=== PATIENT | female | born 1940 | race Caucasian/White ===

== ENCOUNTER 2019-04-13 11:09 | Day surgery (SDC) | payer MEDICARE, OTHER ==
[~2019-04-13] VITALS: Ht 172.7 cm; Wt 79.5 kg
[~2019-04-13 11:09] MED LIST: ACETAMINOPHEN 500 MG TABLET PO PRN; ASPI-630 PO; DILT180C2 PO; EZET1TAB65 PO; FLUO40CA9 PO; FURO-68 PO; HYDROmorphone 2 MG/ML VIAL IV PRN; IV RINGERS,LACTATED 1000ML 1,000 ML IV SCH; LIDOCAINE 1% PF 2 ML VIAL. ID PRN; LISI-130 PO; METO25TA4 PO; MORPHINE SULFATE 2 MG/ML VIAL. IV PRN; OMEG-152 PO; ONDANSETRON PF 4 MG/2 ML VIAL. IV PRN; POTA10TA12 PO; PROCHLORPERAZINE 10 MG/2 ML VIAL. IV PRN; ceFAZolin SODIUM IV Push 1 GM VIAL. IVP PRN; fentaNYL PF VIAL 100 MCG/2 ML VIAL IV PRN
[2019-04-13] MEDS ORDERED: fentaNYL PF VIAL 100 MCG/2 ML VIAL ONE (12:30)
[2019-04-13] MEDS ORDERED: ROCURONIUM 50 MG/5 ML VIAL. ONE (12:30)
[2019-04-13] MEDS ORDERED: BUPIVACAINE-EPI 0.25%-1:200000 MPF 30 ML VIAL. ONE (12:58)
[2019-04-13] MEDS ORDERED: DEXAMETHASONE SOD PHOS 20 MG/5 ML VIAL. ONE (13:46)
[2019-04-13] MEDS ORDERED: LIDOCAINE 2% PF 5 ML VIAL. ONE (13:46)
[2019-04-13] MEDS ORDERED: PROPOFOL 20 ML IV ONE (13:46)
[2019-04-13] MEDS ORDERED: KETOROLAC 30 MG/ML VIAL. ONE (13:46)
[2019-04-13] MEDS ORDERED: SEVOFLURANE 61 TO 120 MINUTES. IH ONE (13:46)
[2019-04-13] MEDS ORDERED: ONDANSETRON PF 4 MG/2 ML VIAL. ONE ×2 (13:46)
[2019-04-13] MEDS ORDERED: NEOSTIGMINE METHYLSULFATE 5 MG/5 ML SYRINGE. ONE (13:48)
[2019-04-13] MEDS ORDERED: GLYCOPYRROLATE 1 MG/5 ML VIAL. ONE (13:48)
[2019-04-13] MEDS ORDERED: MINERAL OIL for SURGERY 10 ML VIAL. MC ONE (14:02)
--- NOTE | 2019-04-13 14:32 | PDOC4 ---
Operative Note Operative Note Date: 04/13/2019 Preoperative diagnosis: Right lower abdominal hernia Postoperative diagnosis: Same Procedure: Robotic-assisted laparoscopic ventral hernia repair with mesh Surgeon: Haile Specimen: None Dictation: Patient is a 78-year-old female is had pain in her right lower quadrant ultrasound showed a small hernia with incarcerated omentum. Procedure of robotic-assisted laparoscopic ventral hernia repair with mesh was explained to the patient in detail risk benefits were also discussed including bleeding infection injury to intra-abdominal contents possibly necessitating further or open operations alternatives to this procedure also discussed with the patient who seemed to understand and gave both verbal and written consent had the procedure performed. Patient was taken to the operating room placed in supine position general anesthesia was initiated once patient was sleep and intubated her abdomen was prepped and draped usual sterile fashion using ChloraPrep. An area in the left upper quadrant was injected with quarter percent Marcaine with epinephrine incision was made 11 blade scalpel and a 5 mm Visiport was placed under direct visualization into the abdomen creating an created pneumoperitoneum once this was complete the abdomen was inspected was noted there was small hernia in the right lower quadrant with incarcerated omentum. A da Juliette ports were placed under direct visualization one in the left mid abdomen one in the left lower abdomen and a 5 mm Visiport was changed out for another da Juliette port. The da Juliette robot was brought in and docked all port sites surgeon went to the robotic console using grasper and Endo [place] scissors the hernia contents were reduced and the peritoneum was opened the hernia defect was closed with a running 20V LOC nonabsorbable suture. Ventral light ST mesh was placed over the hernia defect this was sewn into place with the nonabsorbable V lock suture and the peritoneum was closed over the mesh with 20 absorbable V lock suture. Ports were all removed the pneumoperitoneum reduced port sites were all closed for septic and a Monocryl Mastisol Steri-Strips and island dressings were applied. Patient was awakened and extubated in the operating room taken to recovery in stable condition all sponge instrument needle counts listed as correct estimate blood loss 5 mL. LAMONT EVANS MD Apr 13, 2019 14:32
--- NOTE | 2019-04-13 14:34 | DISCH ---
DISCHARGE INSTRUCTIONS Condition on Discharge Condition on Discharge: Stable Activity After Discharge Activity Instructions for Disc: Avoid exertion Other activity instructions: no lifting more than 20 pounds for 2 weeks Diet after Discharge Diet after Discharge: Regular Wound Incision Care Other wound/incision instructi: a shower in 24 hours Contacting the DRKyaw after DC Call your doctor for: If your condition worsens Follow-Up Follow up with: Dr. Evans in 2 weeks LAMONT EVANS MD Apr 13, 2019 14:34
[2019-04-13] MEDS ORDERED: HYDROcodone/APAP 5/325MG 1 TAB TABLET PO ONE (14:45)
[2019-04-13] MEDS ORDERED: HYDR-2761 PO (14:50)
[2019-04-13 15:42] VITALS: BP 163/55
== END 2019-04-13 16:34 | disposition home or self-care (01) ==
LOC: SURG 11:09
PROVIDERS: ATTEND Surgery
DX: K43.6 Other and unspecified ventral hernia with obstruction, without gangrene (principal); Z88.1 Allergy status to other antibiotic agents; Z88.8 Allergy status to other drugs, medicaments and biological substances; Z79.82 Long term (current) use of aspirin; Z79.899 Other long term (current) drug therapy
CPT/HCPCS: 49653; C1781; J0690; J1100; J1885; J2001; J2405; J2704; J2710; J3490; A7015; J3010

== ENCOUNTER → 2020-05-24 | Outpatient (CLI) | payer MEDICARE, OTHER ==
[~2020-05-24] MED LIST changes: -ACETAMINOPHEN 500 MG TABLET PO PRN; +HYDR-2761 PO; -HYDROmorphone 2 MG/ML VIAL IV PRN; -IV RINGERS,LACTATED 1000ML 1,000 ML IV SCH; -LIDOCAINE 1% PF 2 ML VIAL. ID PRN; -MORPHINE SULFATE 2 MG/ML VIAL. IV PRN; -ONDANSETRON PF 4 MG/2 ML VIAL. IV PRN; -PROCHLORPERAZINE 10 MG/2 ML VIAL. IV PRN; -ceFAZolin SODIUM IV Push 1 GM VIAL. IVP PRN; -fentaNYL PF VIAL 100 MCG/2 ML VIAL IV PRN
--- NOTE | 2020-05-24 11:47 | RAD ---
MR#: [id number] Date of Study: 05/24/2020 Ordering Physician: MAYCO GARCIA, Referring Physician: MAYCO GARCIA, Tech: Santhosh Titus MBA, RDMS, RVT, RDCS, RTR APPROVED REPORT Patient Location: OUT-PATIENT Indications PALPITATIONS Renal Artery Doppler Right Renal Artery Left Renal Arter y Proximal 155.0/46.0 cm/secProximal 117.0/30.0 cm/sec Mid 183.0/50.0 cm/secMid 123.0/35.0 cm/sec Distal 219.0/50.0 cm/secDistal 113.0/28.0 cm/sec Renal/Aorta Ratio 2.36Renal/Aorta Ratio 1.33 Prox. Resistive Index 0.70Prox. Resistive Index 0.75 Mid Resistive Index 0.73Mid Resistive Index 0.72 Distal Resistive Index 0.77Distal Resistive Index 0.75 Rt. Segmental A. 38.0/9.0 cm/secLt. Segmental A. 41.0/12.0 cm/sec Renal Measurements RightLeft Kidney Length9.8 cm cmKidney Rxkszn08.2 cm cm Right Additional FindingsLeft Additional Findings Aortic Doppler VelocityWaveform Proximal Aorta 93.0 cm/sec Findings Grayscale images of the bilateral kidneys are limited due to body habitus. Grossly no obvious pathol ogy noted. Spectral waveforms and color Doppler are notable for mildly elevated renal artery velocities without any critical evidence of significant stenosis. Mild to moderate atherosclerosis noted throughout the aorta. Critical Notification Critical Value: No <Conclusion> 1. No significant renal artery stenosis, mildly elevated velocities in the right mid and distal maik l artery Signed by : Kwesi Ayoub, Electronically Approved : 05/24/2020 11:47:22
--- NOTE | 2020-05-24 13:54 | CARD ---
MR#: [id number] Date of Study: 05/24/2020 Ordering Physician: MAYCO GARCIA, Referring Physician: MAYCO GARCIA, Tech: Jamee Sands RDCS APPROVED REPORT EXAM: Two-dimensional and M-mode echocardiogram with Doppler and color Doppler. Other Information Quality : Good Rhythm : NSRAtrial FibrillationAtrial FlutterAPC'sPVC'sBradycardiaTachycardiaLBBBRBBBPacemaker INDICATION Abnormal ECG Bradycardia 2D DIMENSIONS RVDd3.1 (2.9-3.5cm)Left Atrium(2D)3.2 (1.6-4.0cm) IVSd0.9 (0.7-1.1cm)Aortic Root(2D)2.7 (2.0-3.7cm) LVDd4.6 (3.9-5.9cm)LVOT Diameter2.0 (1.8-2.4cm) PWd1.0 (0.7-1.1cm)LVDs3.1 (2.5-4.0cm) FS (%) 34.1 %SV62.9 ml Aortic Valve AoV Peak Caio.181.2cm/sAoV VTI44.1cm AO Peak GR.13.1mmHgLVOT Peak Caio.104.5cm/s AO Mean GR.7mmHgAVA (VMAX)1.75cm2 STACI (VTI)1.90cm2 Mitral Valve MV E Yxcqvcxx02.2cm/sMV DECEL PCCT496nx MV A Pkokrmta08.9cm/sE/A Ratio1.1 Tricuspid Valve TR P. Szrmqbpo960ly/sRAP UMJRZNCY4pySm TR Peak Gr.55gnMcNVSW05iyRa Pulmonary Vein S1 Gflqitsn98.1cm/sD2 Cpvcufpf35.4cm/s LEFT VENTRICLE The left ventricle is normal size. There is normal left ventricular wall thickness. The left ventricu lar systolic function is normal and the ejection fraction is within normal range. The Ejection Fracti on is 55-60%. There is normal LV segmental wall motion. Transmitral Doppler flow pattern is Grade I-a bnormal relaxation pattern. RIGHT VENTRICLE The right ventricle is normal size. The right ventricular systolic function is normal. ATRIA The left atrium is mildly dilated. The right atrium size is normal. The interatrial septum is intact with no evidence for an atrial septal defect or patent foramen ovale as noted on 2-D or Doppler imagi ng. AORTIC VALVE The aortic valve is calcified but opens well. Doppler and Color Flow revealed trace aortic regurgitat ion. There is no significant aortic valvular stenosis. MITRAL VALVE The mitral valve is calcified but opens well. There is no evidence of mitral valve prolapse. There is no mitral valve stenosis. Doppler and Color-flow revealed mild mitral regurgitation. TRICUSPID VALVE The tricuspid valve is normal in structure and function. Doppler and Color Flow revealed mild tricusp id regurgitation. The PA pressure was estimated at 30 mmHg. There is no tricuspid valve stenosis. PULMONIC VALVE The pulmonary valve is normal in structure and function. Doppler and Color Flow revealed trace pulmon ic valvular regurgitation. There is no pulmonic valvular stenosis. GREAT VESSELS The aortic root is normal in size. The ascending aorta is normal in size. The IVC is normal in size a nd collapses >50% with inspiration. PERICARDIAL EFFUSION There is no evidence of significant pericardial effusion. Critical Notification Critical Value: No <Conclusion> The left ventricle is normal size. The left ventricular systolic function is normal and the ejection fraction is within normal range. The Ejection Fraction is 55-60%. Doppler and Color Flow revealed trace aortic regurgitation. There is no significant aortic valvular stenosis. Doppler and Color-flow revealed mild mitral regurgitation. Doppler and Color Flow revealed mild tricuspid regurgitation. The PA pressure was estimated at 30 mmHg. Signed by : Bernardo Cortés MD Electronically Approved : 05/24/2020 13:53:52
== END ==
LOC: ECHO 09:37
PROVIDERS: ATTEND Internal Medicine Cardiovascular Disease
DX: I08.3 Combined rheumatic disorders of mitral, aortic and tricuspid valves (principal); I70.0 Atherosclerosis of aorta; I10 Essential (primary) hypertension
CPT/HCPCS: 93306; 93975

== ENCOUNTER → 2020-06-14 | Outpatient (CLI) | payer MEDICARE, OTHER | LOC: LAB 09:30 | PROVIDERS: ATTEND Internal Medicine Cardiovascular Disease | DX: I10 Essential (primary) hypertension (principal) | CPT/HCPCS: 82088; 84244 ==

== ENCOUNTER → 2021-02-27 | Outpatient (CLI) | payer MEDICARE, OTHER ==
[~2021-02-27] MED LIST changes: +EZET-56 PO; -EZET1TAB65 PO
--- NOTE | 2021-02-27 13:17 | CARD ---
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 Patient was brought to the procedure suite and her le ft chest and shoulder were prepped and draped in the usual fashion. 20 mL of 2% lidocaine was infilt rated into the skin and subcutaneous tissues for local anesthesia. An incision was made in the left third intercostal space 1 inch from midsternal line and using the introducer and the prior provided w ith the kit, a [employer] Biomonitor III loop recorder serial number [id number] was placed in the subcut aneous tissue. The incision was closed in one layer. Hemostasis was secured. Patient tolerated the procedure well. There were no immediate complications. At the end of procedure, the device showed sensing amplitude of 1.2 mV. CONCLUSION: Successful implantation of Biot[employer]ik Biomonitor III loop recorder for recurrent syncope of uncertain etiology to rule out any significant bradycardia/pauses Signed by : Mayco Mansfield, Electronically Approved : 02/27/2021 13:16:38
== END | disposition home or self-care (01) ==
LOC: LINQ 10:15
PROVIDERS: ATTEND Internal Medicine Cardiovascular Disease
DX: R55 Syncope and collapse (principal); I10 Essential (primary) hypertension; E78.00 Pure hypercholesterolemia, unspecified; F32.9 Major depressive disorder, single episode, unspecified; Z85.828 Personal history of other malignant neoplasm of skin; Z90.710 Acquired absence of both cervix and uterus; Z98.51 Tubal ligation status; Z98.890 Other specified postprocedural states; Z79.82 Long term (current) use of aspirin; Z79.899 Other long term (current) drug therapy; Z88.2 Allergy status to sulfonamides; Z88.8 Allergy status to other drugs, medicaments and biological substances; Z72.89 Other problems related to lifestyle
CPT/HCPCS: 33285; C1764